=== PATIENT | male | born 1985 | race Caucasian/White ===

== ENCOUNTER 2016-11-23 13:33 | Inpatient (IN) | payer SELFPAY ==
[~2016-11-23] VITALS: Ht 167.6 cm; Wt 78.3 kg
[2016-11-23 14:21] LABS: BASOPHILS # (AUTO) 0.17 K/uL (0.00-0.20); BASOPHILS % (AUTO) 1.8 % (0.0-2.0); EOSINOPHILS # (AUTO) 0.15 K/uL (0.00-0.70); EOSINOPHILS % (AUTO) 1.64 % (1.0-6.0); HEMATOCRIT 50.1 % (41-53); HEMOGLOBIN 16.6 g/dL (13.5-17.5); LYMPHOCYTES # (AUTO) 3.1 K/uL (1.0-4.8); LYMPHOCYTES % (AUTO) 32.6 % (22.0-44.0); MEAN CORPUSCULAR HEMOGLOBIN 30.8 pg (26.0-34.0); MEAN CORPUSCULAR HGB CONC 33.2 G/dL (31.0-37.0); MEAN CORPUSCULAR VOLUME 93 fL (80-100); MONOCYTES # (AUTO) 0.7 K/uL (0.1-1.0); MONOCYTES % (AUTO) 7.3 % (2.0-9.0); NEUTROPHILS # (AUTO) 5.3 K/uL (1.8-7.7); NEUTROPHILS % (AUTO) 56.6 % (40.0-70.0); PLATELET COUNT (AUTO) 298 K/uL (150-450); RED CELL DISTRIBUTION WIDTH 14.2 % (11.5-14.5); WHITE BLOOD COUNT (AUTO) 9.4 K/uL (4.5-11.0)
[2016-11-23 14:28] LABS: ANION GAP 12 mmol/L (8-16); CALCIUM, TOTAL 8.9 mg/dL (8.8-10.5); CARBON DIOXIDE 25 mmol/L (22-29); CHLORIDE 107 mmol/L (98-107); CREATININE 0.76 mg/dL (0.60-1.30); GLOMERULAR FILTR. RATE CALC > 60 mL/min (>60); POTASSIUM 3.6 mmol/L (3.5-5.1); SODIUM SERUM 144 mmol/L (136-145); UREA NITROGEN, BLOOD 2 mg/dL (7-18)
[2016-11-23 14:35] LABS: ALANINE AMINOTRANSFERASE 78 U/L (12-78); ALBUMIN 4.4 g/dL (3.4-5.0); ASPARTATE AMINOTRANSFERASE 44 U/L (15-37); BILIRUBIN,TOTAL 0.3 mg/dL (0.1-1.0)
[2016-11-23] MEDS ORDERED: PERTUSS(ACELL),DIPH,TET VAC/PF 0.5 ML VIAL IM ONE (14:45)
[2016-11-23] MEDS ORDERED: TETANUS/DIPHTHERIA TOXOID [ADULT] 0.5 ML SYRINGE IM ONE (14:45)
[2016-11-23] MEDS ORDERED: HALOPERIDOL LACTATE 5 MG/ML VIAL IM ONE (16:45)
[2016-11-23] MEDS ORDERED: LORazepam 2 MG/ML VIAL IM ONE (16:45)
[2016-11-23] MEDS ORDERED: DiphenhydrAMINE HCL 50 MG/ML VIAL IM ONE (16:45)
[2016-11-23] MEDS ORDERED: LORazepam 2 MG TABLET PO PRN (17:45)
[2016-11-23] MEDS ORDERED: HALOPERIDOL 5 MG TABLET PO PRN (17:45)
[2016-11-23] MEDS ORDERED: ZOLPIDEM TARTRATE 10 MG TABLET PO PRN (17:45)
[2016-11-23 18:13] LABS: CHOL/HDL RATIO 3.7 (4.2-7.3)
[2016-11-23 18:38] LABS: THYROID STIMULATING HORMONE 2.57 uIU/mL (0.36-3.74)
[2016-11-23 18:40] VITALS: BP 114/67
[2016-11-24] MEDS ORDERED: INFLUENZA VIRUS VACCINE QVS 2017-18 (3YR+)/PF 60 MCG/0.5 ML SYRINGE IM ONE (02:30)
[2016-11-24 08:30] VITALS: BP 131/92
[2016-11-24] MEDS: BACITRACIN 28.4 GM OINTMENT TP SCH ×2 (10:40→17:21)
[2016-11-24 18:07] VITALS: BP 108/71
[2016-11-24] MEDS: RisperiDONE 0.5 MG TABLET PO SCH (20:32)
[2016-11-25 02:10] VITALS: BP 123/80
[2016-11-25 08:00] VITALS: BP 115/80
[2016-11-25] MEDS: RisperiDONE 0.5 MG TABLET PO SCH ×2 (08:55→20:40)
[2016-11-25] MEDS: BACITRACIN 28.4 GM OINTMENT TP SCH ×2 (10:56→17:25)
[2016-11-25 16:40] VITALS: BP 122/82
[2016-11-26 03:50] VITALS: BP 132/82
[2016-11-26 08:33] VITALS: BP 121/72
[2016-11-26] MEDS: RisperiDONE 0.5 MG TABLET PO SCH (08:47)
[2016-11-26] MEDS: BACITRACIN 28.4 GM OINTMENT TP SCH (08:48)
[2016-11-26] MEDS ORDERED: RISP.5 PO (10:45)
[2016-11-26] MEDS ORDERED: BACI1OIN6 TP (10:47)
== END 2016-11-26 13:25 | disposition home or self-care (01) | DRG 885 ==
LOC: EMS 13:36 → 3EI 17:56
DX: F32.3 Major depressive disorder, single episode, severe with psychotic features (principal); F29 Unspecified psychosis not due to a substance or known physiological condition; R45.851 Suicidal ideations; X78.8XXA Intentional self-harm by other sharp object, initial encounter; F10.10 Alcohol abuse, uncomplicated; S61.511A Laceration without foreign body of right wrist, initial encounter; F19.10 Other psychoactive substance abuse, uncomplicated; Z71.41 Alcohol abuse counseling and surveillance of alcoholic; Y93.89 Activity, other specified; Y92.89 Other specified places as the place of occurrence of the external cause; Z71.51 Drug abuse counseling and surveillance of drug abuser
CPT/HCPCS: 84439; 84443; 90471; 90714; 90715; 96372; 99285; G0480; J1200; J1630; J2060